=== PATIENT | male | born 1980 | race Asian ===

== ENCOUNTER 2017-06-24 19:41 | Emergency (ER) | payer SELFPAY | END 2017-06-24 21:10 | disposition left against medical advice (07) | LOC: E/R 19:41 | DX: Z53.21 Procedure and treatment not carried out due to patient leaving prior to being seen by health care provider (principal) ==

== ENCOUNTER 2018-11-24 05:18 | Day surgery (SDC) | payer OTHER ==
[2018-11-24] MEDS: CEFAZOLIN 2 GM/50 ML (PMX) 50 ML IVPB (05:30)
[2018-11-24] MEDS: SOD CHLORIDE 0.9% 1,000 ML IV (07:12)
[2018-11-24 07:26] LABS: ADD MAN DIFF? NO
[2018-11-24] MEDS ORDERED: MEPERIDINE 25 MG INJ IV (07:30)
[2018-11-24] MEDS ORDERED: FENTAnyl 50 MCG/ML VIAL IV ×3 (07:30)
[2018-11-24] MEDS ORDERED: ALBUTEROL 0.083% (NEB) 2.5 MG/3 ML AMP HHN (07:30)
[2018-11-24] MEDS ORDERED: DIPHENHYDRAMINE 50 MG INJ IV (07:30)
[2018-11-24] MEDS ORDERED: METOCLOPRAMIDE 10 MG INJ IV (07:30)
[2018-11-24] MEDS ORDERED: HYDROmorphONE 1 MG/5 ML IV SYRINGE IV (07:30)
[2018-11-24 07:35] LABS: WHITE BLOOD COUNT 6.6 10^3/ul (4.8-10.8)
[2018-11-24 07:35] LABS: BASOPHIL # 0.1 10^3/ul (0.0-0.1); BASOPHILS % 0.8 % (0.0-2.0); EOSINOPHILS # 0.4 10^3/ul (0.0-0.5); EOSINOPHILS % 5.3 % (0.0-7.0); HEMATOCRIT 41.5 % (42.0-52.0); HEMOGLOBIN 14.7 g/dl (14.0-18.0); LYMPHOCYTES # 2.5 10^3/ul (0.8-2.9); LYMPHOCYTES % 37.6 % (15.0-51.0); MEAN CORPUSCULAR HEMOGLOBIN 29.9 pg (29.0-33.0); MEAN CORPUSCULAR HGB CONC 35.4 g/dl (32.0-37.0); MEAN CORPUSCULAR VOLUME 84.3 fl (82.0-101.0); MONOCYTE # 0.7 10^3/ul (0.3-0.9); MONOCYTES % 10.6 % (0.0-11.0); NEUTROPHILS % 45.5 % (39.0-77.0); PLATELET COUNT 236 10^3/UL (140-415); RED BLOOD COUNT 4.92 10^6/ul (4.70-6.10); RED CELL DISTRIBUTION WIDTH 11.7 % (11.5-14.5)
[2018-11-24 07:53] LABS: INR 0.94; PROTIME 12.7 Sec (11.9-14.9)
[2018-11-24] MEDS ORDERED: ROCURONIUM 50 MG INJ (08:00)
[2018-11-24 08:02] LABS: ALANINE AMINOTRANSFERASE 46 IU/L (13-69); ALBUMIN 4.4 g/dl (3.3-4.9); ALBUMIN/GLOBULIN RATIO 1.46; ALKALINE PHOSPHATASE 61 IU/L (42-121); ANION GAP 9 (5-13); ASPARTATE AMINO TRANSFERASE 30 IU/L (15-46); BILIRUBIN,INDIRECT 0.4 mg/dl (0-1.1); BILIRUBIN,TOTAL 0.4 mg/dl (0.2-1.3); BLOOD UREA NITROGEN 20 mg/dl (7-20); CALCIUM 9.1 mg/dl (8.4-10.2); CARBON DIOXIDE 28 mmol/L (21-31); CHLORIDE 105 mmol/L (97-110); CREATININE 0.99 mg/dl (0.61-1.24); Estimated GFR > 60 mL/min (>60); GLUCOSE 102 mg/dl (70-220); POTASSIUM 3.9 mmol/L (3.5-5.1); SODIUM 142 mmol/L (135-144); TOTAL PROTEIN 7.4 g/dl (6.1-8.1)
[2018-11-24] MEDS ORDERED: FENTAnyl 50 MCG/ML VIAL (08:07)
[2018-11-24] MEDS ORDERED: ROPIVACAINE 0.5 % 30 ML VIAL (08:09)
[2018-11-24] MEDS ORDERED: SUCCINYLCHOLINE CHLORIDE 100 MG/5 ML SYG IV (08:32)
[2018-11-24] MEDS ORDERED: PROPOFOL 20 ML (08:32)
[2018-11-24] MEDS ORDERED: CEFAZOLIN 1 GM INJ (08:32)
[2018-11-24] MEDS ORDERED: LIDOCAINE 100 MG SYRINGE (08:33)
[2018-11-24] MEDS ORDERED: SUGAMMADEX SODIUM 200 MG/2 ML VIAL IV (08:47)
[2018-11-24] MEDS ORDERED: LABETALOL HCL 20MG INJ (08:47)
[2018-11-24] MEDS: ONDANSETRON 4 MG INJ IV (09:17)
[2018-11-24] MEDS: HYDROmorphONE 1 MG/5 ML IV SYRINGE IV ×3 (09:17→09:47)
[2018-11-24] MEDS: HYDROCODONE/APAP (5/325) TAB PO (09:48)
[2018-11-24 10:47] LABS: PARTIAL THROMBOPLASTIN TIME 36.5 Sec (23.0-35.0)
== END 2018-11-24 10:43 | disposition home or self-care (01) ==
LOC: SDS 05:18
DX: K80.10 Calculus of gallbladder with chronic cholecystitis without obstruction (principal); I10 Essential (primary) hypertension
CPT/HCPCS: 47562; 80053; 85025; 85610; 85730; 88304